=== PATIENT | male | born 1955 | race Caucasian/White ===

== ENCOUNTER → 2022-03-15 | Outpatient (CLI) | payer BC, SELFPAY ==
[2022-03-15 11:40] LABS: PSA,Total - Annual Screen 2.79 ng/mL (0.00-4.00)
== END | disposition home or self-care (01) ==
LOC: LAB 10:29
PROVIDERS: PCP Nurse Practitioner Family; Referring Provider Urology; Visit Provider Urology
DX: Z12.5 Encounter for screening for malignant neoplasm of prostate (principal)
CPT/HCPCS: 36415; 84153; G0103

== ENCOUNTER 2022-04-14 09:01 | Inpatient (IN) | payer BC, SELFPAY ==
--- NOTE | 2022-04-08 12:50 | EKG12_ITS ---
Test Reason : PREOP Blood Pressure : / mmHG Vent. Rate : 076 BPM Atrial Rate : 076 BPM P-R Int : 126 ms QRS Dur : 106 ms QT Int : 374 ms P-R-T Axes : 068 -53 058 degrees QTc Int : 420 ms Normal sinus rhythm Left axis deviation Abnormal ECG Confirmed by JANET WORLEY, BRITNEY ([id number]), avid editor CASSIE RIVAS ([id number]) on 04/13/2022 9:37:13 AM Referred By: Moustapha Vee Confirmed By:KEYUR GONZALES MD
[2022-04-14] VITALS (12 sets, daily range): BP systolic 116–163; BP diastolic 72–96; PULSE 60–114; RESP 16–18; TEMP 36.4–37; O2SAT 94–100; BMI 27.0
[2022-04-14] MEDS: Lactated Ringers 1,000 ML 15 ML IV ×2 (06:30→09:31)
[2022-04-14] MEDS: Cefazolin 2 GM in 0.9% Normal Saline 100 ML IV (08:14)
--- NOTE | 2022-04-14 08:18 | DCINST_ITS ---
Discharge Instructions Diet Discharge Diet: No restrictions Activity Discharge Activity: Return to Normal Activity Return to work on:: 04/19/22February shower in (days): 1 Lifting Restrictions: no heavy lifting. Follow Up Care Please Follow Up With: Moustapha Vee MD When: 2 -3 weeks, if you go home with taylor then we can see you next week to remove taylor Test Results: Test results from this visit will be discussed in further detail at your follow- up appointment, if applicable. Discharge Plan Admission Primary Reason for Your Visit: resect bladder tumor Attending Provider: Moustapha Vee Primary Care Provider: Jamey Magdaleno NP Instructions Patient Instructions: Discharge Instructions for ... Discharge Orders/Prescriptions Prescriptions: No Action NK Other Ambulatory Orders: 12 Lead EKG (Routine) Timeframe: [id number] Location: None Selected Ordered By: Dr. Beltran Saxena Referrals / Follow Up: Moustapha Vee MD [STAFF PHYSICIAN] - Jamey Magdaleno NP, RAILWAY TRACK WORKER-C [Primary Care Provider] - Disposition Disposition (needs filled in before D/C Order can be placed): Home, Self Care
--- NOTE | 2022-04-14 08:30 | BLB_PTH ---
PATIENT: ROBERT ROSENBERG LOC: [facility] U#:[id number] AGE/SX: 66/M ROOM: IA312 RE04/14/[address]: Dr. Moustapha Vee MD : [id number] BED: 1 DIS: 04/15/2022 SPEC #: [id number] RECD: 04/14/22 10:37 STATUS: JOSS BENITESAlexei #: [id number] ALEXY: 04/14/22 08:[address]: Moustapha Vee DEPT: SURGICAL PATHOLOGY RECD BY: Desirae Luis ENTERED: 04/14/22 12:14 SP TYPE: TURB OTHR DR: Jamey Magdaleno, GAS USAGE METER CLERK-C Tissues: Urinary bladder, NOS Procedures: Surgery Specimen Level V HEADER OPERATION: Cysto, transurethral resection bladder PRE-OP DIAGNOSIS: Screening, bladder neoplasm TISSUE SUBMITTED: Bladder tissue MICROSCOPIC DIAGNOSIS Urinary bladder tumor, transurethral resection: Papillary carcinoma. See cancer template below. AM:carla 04/15/2022 COMMENT BLADDER CANCER (TUR) SUMMARY Procedure: Transurethral resection of bladder (TURBT) Tumor site: Not specified Histologic type: Papillary urothelial carcinoma Histologic grade: 3/3 (high grade) Tumor configuration: Papillary and invasive Muscularis propria invasion: Present, frequent Lymphvascular invasion: Not identified Tumor extension: Tumor extends frequently into the detrusor muscle. Additional pathologic findings: Mild chronic inflammation. The above summary is in compliance with [employer] [place] Pathology (CAP) Cancer Protocols Checklist and [place] Joint Committee on Cancer (AJCC), Staging Manual, 8th Ed. Case has been reviewed in consultation with Dr. Valenzuela who concurs with the above diagnosis. LUIS:DOLLY MICROSCOPIC DESCRIPTION Slides are reviewed. GROSS DESCRIPTION Received in fixative is one container labeled with the patient's name and designated bladder tissue. The specimen consists of multiple irregular fragments of woodson soft tissue that in aggregate measure 4 x 3 x 1 cm. The entire specimen is submitted in five cassettes. / SJ:carla 04/14/2022 TC:0 CPT: 23067
--- NOTE | 2022-04-14 09:03 | PCM.OPRPT ---
Report of Operation Date of Procedure: 04/14/22 Pre-Operative Diagnosis: Bladder cancer bladder tumor seen on CAT scan Post-Operative Diagnosis: The same multifocal invasive looking bladder cancer Surgery/Procedure Performed:: Transurethral resection of a large multiple bladder tumors >5cm Description of Surgical Findings:: This is a 66-year-old male had some gross hematuria he had a CAT scan done a CAT scan demonstrated a mass within the bladder very suspicious for bladder cancer so recommended we take him to surgery for transurethral resection of bladder tumors. Patient was taken back to the operating room at the [facility] duction of general anesthesia I went in to the bladder with a 21 Turkish rigid cystourethroscope the penis and testicle had been prepped and draped in usual sterile fashion, the plan cystoscopy with a 30 degree lens immediately he had a very endophytic and invasive looking tumor in the posterior trigone area of the bladder he then had some extensive amount of fluffy exophytic tumors papillary tumors throughout the bladder and he had a large papillary tumor in the dome of the bladder I then started the resection both the left and right ureteral orifice and fortunately were not involved, I resected the tumor in the posterior midline is a very deep tumor got down to the muscle in my view it appeared to be muscle invasive there appeared to be tumor between the muscle fibers very suspicious for muscle invasive bladder cancer despite with the pathologist may read. I then went and extensively try to cauterize many of these other fluffy tumors throughout the bladder and then the tumor in the dome was extremely hard to get to I resected most of it but at 1 point discussed to which bleeding did very difficult to see so I do not think I did a complete resection of this tumor better resected as much as possible. At this point because of the bleeding I put a three-way catheter and cauterized as much as possible and put him on irrigation with keep him overnight to stop the bleeding hopefully home tomorrow with a catheter. Surgeon: Moustapha Vee Type of Anesthesia: General Drains: 22fr [address] way Admit VTE Documentation VTE Present on Admission: No VTE Mechan Device Prophylaxis: SCD's VTE Pharm Prophylaxis ordered?: No
[2022-04-14] MEDS: Cefazolin 1 GM/50 ML BAG IV ×2 (13:53→22:17)
[2022-04-14] MEDS: 0.9% Saline Lock 10 ML Syringe IV ×2 (16:05→19:57)
[2022-04-14] MEDS: Morphine 2 MG/ML Syringe IV ×3 (16:05→22:20)
[2022-04-15] MEDS: Cefazolin 1 GM/50 ML BAG IV (05:55)
[2022-04-15] MEDS: 0.9% Saline Lock 10 ML Syringe IV (06:33)
[2022-04-15] MEDS: Morphine 2 MG/ML Syringe IV (06:33)
[2022-04-15 07:54] VITALS: BP 130/66; PULSE 92; RESP 18; TEMP 37.1; O2SAT 97
--- NOTE | 2022-04-15 09:58 | CASEMGMT ---
JEFF ALVAREZ SAP BOBJ DEVELOPER CM to room to meet with patient for initial transition planning/care coordination assessment. RN KIM introduced self and role at [facility].? Pt voices understanding and consents to assessment at this time.? Pt sitting up in chair in no distress at this time.? @ bedside. Pt is A/O at this time and answers all questions appropriately.?? Care providers, pharmacy, and demographics verified/updated at this time. PCP: KERI Magdaleno Specialists: Dr Vee Preferred Pharmacy: [facility] Insurance: [place] Prescription Benefit:?Yes Living Will/HPOA:? Pt does not currently have LW/HCPOA and declines info at this time.? Pt made aware that he can contact as an out-pt and make appt in the future if he decides he would like to talk with someone about this or would like to utilize [facility] social work for advanced directive completion.?Pt has [employer] card with information and contact number. Pt expresses understanding.? LNOK: Deanne Living Arrangements: Lives w/ in 2-story home w/no steps to enter. Denies difficulty w/stairs, just takes them slowly. Independent. Transportation:?Pt states drives self and states no transportation concerns at this time.? also drives DME: ? Denies using any DME and denies needs.? HHC/SNF: No hx of either. No needs identified. Pt wishes to return home and states has no concerns with going home at time of discharge.?? Pt and voice no concerns/needs at this time.? Advised pt and to ask for CM if any questions/concerns/needs arise.? Voices understanding. PLAN:??Home Oly MARQUEZ RN, CM
[2022-04-15 10:57] VITALS: BP 125/86; PULSE 94; RESP 16; TEMP 36.7; O2SAT 97
== END 2022-04-15 11:02 | disposition home or self-care (01) | DRG 670 ==
LOC: SDC 09:14 → MS3 09:14
PROVIDERS: Admitting Provider Urology; PCP Nurse Practitioner Family; Referring Provider Urology; Visit Provider Urology
PROC: 0T5B8ZZ Destruction of Bladder, Via Natural or Artificial Opening Endoscopic (ICD-10-PCS; CPT 51720; principal; 2022-04-14 08:10)
DX: C67.1 Malignant neoplasm of dome of bladder (principal)
CPT/HCPCS: 88307; 93005; J7120; A4216; J2405; J3490; J9280

== ENCOUNTER → 2022-08-10 | Outpatient (CLI) | payer BC, SELFPAY ==
--- NOTE | 2022-08-10 11:56 | STRESSREP_ITS ---
Stress Test Report Date: 08/10/2022 Procedure: Pharmacologic stress nuclear imaging study Indications: Cardiomyopathy Consent: Per the patient Procedure: The patient underwent pharmacologic (Regadenoson 0.4mg ) evaluation with a peak heart rate of 136 beats per minute (87%predicted maximal heart rate) and a peak blood pressure of 132/84 mmHg. The baseline ECG demonstrated normal sinus rhythm. The peak pharmacologic ECG demonstrated no ischemic changes. There were no cardiac dysrhythmias pretest, during pharmacologic infusion, or recovery. There was no complaint of chest discomfort during pharmacologic infusion or recovery. The patient was injected with 11.8 millicuries of technetium 99m Cardiolite and subsequently rest SPECT Cardiolite nuclear imaging was obtained in the horizontal long, vertical long, and short axis views. The patient underwent pharmacologic (Regadenoson) evaluation. The patient was injected with 33.5 millicuries of technetium 99m Cardiolite and subsequently stress SPECT Cardiolite nuclear imaging was obtained in the horizontal long, vertical long, and short axis views. A gated Cardiolite study at peak stress was obtained. The examination was stopped secondary to completion of protocol. Rest and stress SPECT Cardiolite nuclear imaging status post realignment, normalization, and attenuation correction demonstrate no reversible ischemic changes. There is significant GI uptake and motion artifact. The gated Cardiolite study demonstrates myocardial thickening and inward wall motion. The reported LVEF is 46%. Impression: 1. Pharmacologic (Regadenoson) evaluation 2. Peak pharmacologic ECG with no ischemic change. 3. There were no cardiac dysrhythmias pretest, during pharmacologic infusion, or recovery. 5. Post attenuation correction images failed to reveal any reversible ischemic defects. 6. The gated Cardiolite study reports an LVEF of 46%. This note was generated with [employer] software. It may contain incorrect words, spelling, and punctuation that were not noted in checking the note before signing.
== END | disposition home or self-care (01) ==
PROVIDERS: PCP Nurse Practitioner Family; Visit Provider Internal Medicine Cardiovascular Disease
DX: I42.9 Cardiomyopathy, unspecified (principal)
CPT/HCPCS: 78452; 93017; A9500; A4216; J2785

== ENCOUNTER → 2022-08-17 | Outpatient (CLI) | payer BC, SELFPAY ==
[2022-08-17 11:53] LABS: Anion Gap 5 (5-15); BUN 22 mg/dL (7-18); BUN/Creat Ratio 21.4 RATIO (10-20); Calcium,Total 9.5 mg/dL (8.5-10.1); Chloride 103 mmol/L (98-107); Creatinine, Serum 1.03 mg/dL (0.70-1.30); EST Glomerular Filtration Rate 77 mL/min (>60); Est Glom Filt Rate - Afr Amer 93 mL/min (>60); Glucose 115 mg/dL (74-106); Potassium 4.2 mmol/L (3.5-5.1); Sodium Level 136 mmol/L (136-145); Thyroid Stim Hormone (TSH) 0.88 uIU/mL (0.358-3.74)
== END | disposition home or self-care (01) ==
LOC: LAB 10:20
PROVIDERS: PCP Nurse Practitioner Family; Referring Provider Internal Medicine Cardiovascular Disease; Visit Provider Internal Medicine Cardiovascular Disease
DX: I42.9 Cardiomyopathy, unspecified (principal); T45.1X5A Adverse effect of antineoplastic and immunosuppressive drugs, initial encounter
CPT/HCPCS: 36415; 80048; 84443

== ENCOUNTER 2022-09-27 13:40 | Inpatient (IN) | payer MEDICARE, SELFPAY ==
[2022-09-27] VITALS (9 sets, daily range): BP systolic 90–109; BP diastolic 50–75; PULSE 80–86; RESP 12–19; TEMP 36.2–37.1; O2SAT 92–98; BMI 24.5; BMI 23.4
--- NOTE | 2022-09-27 13:57 | EKG12_ITS ---
Test Reason : SYNCOPE Blood Pressure : / mmHG Vent. Rate : 074 BPM Atrial Rate : 074 BPM P-R Int : 128 ms QRS Dur : 106 ms QT Int : 374 ms P-R-T Axes : 070 -57 064 degrees QTc Int : 415 ms Normal sinus rhythm Left axis deviation Low voltage QRS (Limb Leads) Abnormal ECG Confirmed by JONAS WORLEY, IZABEL ([id number]), graphic editor CASSIE RIVAS ([id number]) on 09/29/2022 10:15:50 AM Referred By: Confirmed By:IZABEL MCDANIEL MD
[2022-09-27] MEDS: 0.9% Normal Saline 1,000 ML 2000 ML IV (13:59)
--- NOTE | 2022-09-27 14:00 | EX.ED.DYSGE1 ---
HPI History of Present Illness Chief Complaint: Weakness Detail of Chief Complaint: Possible seizure. Informant: patient and spouse/S.O. Onset/Context/Timing Onset: Today Context: Gradual Onset Timing: Continuous Current Severity: Mild Maximum Severity: Moderate Narrative Narrative: 67-year-old male history of bladder cancer with a prior bladder resection. Recently hospitalized at [facility]. Has been lightheaded and dizzy since last . states had decreased oral intake. He is also had diarrhea. No fever or chills. No chest pain or abdominal pain. Today she called the squad because he was just so weak. When he sat him up to put him in the ambulance he either had myoclonic jerking or possibly a seizure. He is hypotensive on arrival. Prior similar symptoms: No Recent Illness/Hospitalization: Yes [facility] Medical History Chemotherapy induced cardiomyopathy Malignant neoplasm of overlapping sites of bladder Wears dentures Home Medications acetaminophen 500 mg capsule 1,000 mg PO Q8H PRN pain 07/30/22 [History Last Taken Unknown] lisinopril 2.5 mg tablet 2.5 mg PO DAILY #30 tabs 08/05/22 [Rx Last Taken Unknown] carvedilol 25 mg tablet 25 mg PO BID HEART 09/27/22 [History Last Taken 09/27/22] cefdinir 300 mg capsule 300 mg PO DAILY 09/27/22 [History Last Taken Unknown] docusate sodium 100 mg capsule 100 mg PO DAILY 09/27/22 [History Last Taken Unknown] dronabinol 5 mg capsule 5 mg PO DAILY 09/27/22 [History Last Taken Unknown] fluconazole 200 mg tablet 200 mg PO DAILY 09/27/22 [History Last Taken Unknown] loperamide 2 mg capsule 2 mg PO PRN PRN Diarrhea 09/27/22 [History Last Taken Unknown] magnesium chloride 71.5 mg (magnesium chloride) tablet,delayed release 71.5 mg PO BID SUPPLEMENT 09/27/22 [History Last Taken 09/27/22] sertraline 50 mg tablet 50 mg PO DAILY ANXIETY 09/27/22 [History Last Taken Unknown] sodium chloride 0.9 % irrigation solution 60 ml irrigation TID IRRIGATION 09/27/22 [History Last Taken 09/27/22] Allergy/AdvReac Type Severity Reaction Status Date / Time No Known Allergies Allergy Verified 08/17/22 09:38 Family History Mother Heart disease Brother Heart disease Surgical History History of bladder surgery (~04/14/22) Social History Smoking Status: Never smoker alcohol intake: never substance use type: does not use caffeine: Yes Type: coffee Number of servings: 2 ROS ROS ED ROS Narrative Lightheaded. Decreased oral intake. Review of Systems ROS Unobtainable: Denies due to encephalopathy Constitutional Constitutional ED: Denies chills or fever(s) Eyes Eyes: Denies blurry vision ENT ENT ED: Denies ear pain or rhinorrhea Cardiovascular Cardiovascular: Denies chest pain Respiratory/Chest Respiratory/Chest: Denies cough or dyspnea Gastrointestinal Gastrointestinal: Reports diarrhea; Denies abdominal pain, constipation, melena, nausea or vomiting Genitourinary Genitourinary ED: Denies dysuria or hematuria Musculoskeletal Musculoskeletal: Denies arthralgias Integumentary Denies abscess Psychiatric Psychiatric: Denies anxiety Endocrine Endocrinology: Denies cold intolerance Hematologic/Lymphatic Hematologic/Lymphatic: Reports none Allergic/Immunologic Allergic/Immunologic ED: Denies mouth swelling or tongue swelling EXAM Physical Exam Narrative Exam Narrative: 67-year-old male he is hypotensive 93/75. He is awake and alert. at bedside. H EENT exam atraumatic. Pupils round reactive light. No facial droop. Normal speech. Dry mucous membranes. Neck nontender no JVD. Lungs clear to auscultation bilaterally. Heart regular rhythm rate about 80 no murmur. Chest wall nontender. Abdomen soft nontender. Prior well-healed laparoscopic incisions. He is got a urostomy hole without a suprapubic catheter. He does have a Segovia catheter in place. Skin no peritoneal signs. Abdomen is nontender. He is nondistended. Moving all 4 extremities. Nontender no edema. Neurologically is awake and alert with no focal motor deficits. Const Vital Signs: 09/27/22 13:41 09/27/22 13:44 09/27/22 14:24 Temperature 97.1 F L Temperature Source Temporal Pulse Rate 82 Respiratory Rate 19 H Respiratory Effort Normal Blood Pressure 93/75 Blood Pressure Mean 81 Pulse Ox 97 Oxygen Delivery Method Room Air Room Air 09/27/22 14:41 09/27/22 15:00 09/27/22 16:00 Temperature Temperature Source Pulse Rate 81 80 80 Respiratory Rate 13 14 12 Respiratory Effort Blood Pressure 109/64 100/70 107/64 Blood Pressure Mean 79 80 78 Pulse Ox 92 98 97 Oxygen Delivery Method Room Air Room Air Room Air Positive well nourished and well developed; Negative for obese, cachectic, contractures or unkempt General Appearance ED: well developed and NAD; Negative for unkempt, cachectic, contractures, cyanotic, diaphoretic or pallor Nutritional Appearance: Negative for cachectic or obese HEENT Reports dry mucous membranes; Denies moist mucous membranes Negative for trauma or tenderness Mouth ED: Yes dry mucous membranes Mouth: dry mucous membranes Eyes PERRL and EOMs intact bilaterally General Eye ED: Negative for pale conjunctiva or scleral icterus Neck no lymphadenopathy, supple and no JVD General: Negative for tenderness Lymph Lymphatic: Negative for other Chest Wall inspection of chest normal and palpation of chest normal Resp normal respiratory effort and clear to auscultation bilaterally Effort and Inspection: Negative for retractions Auscultation: Negative for rales or rhonchi Cardio regular rate, regular rhythm, S1 normal heart sound, S2 normal heart sound and no murmurs Palpation: Negative for palpable S3 Rate: Negative for bradycardia Rhythm: Negative for abnormal rhythm GI normal to inspection, nondistended, normoactive bowel sounds, non-tender, non-distended and no masses Inspection: Negative for abdominal distention Auscultation: normoactive bowel sounds Palpation: soft; Negative for tender or guarding Back/Spine no CVA tenderness General Back: Negative for CVA tenderness Cervical Spine: Negative for cervical spine tenderness Thoracic Spine / Upper Back: Negative for thoracic spinal tenderness Lumbar Spine / Lower Back: Negative for lumbar spinal tenderness Extremity normal to inspection General Extremety ED: Negative for edema or tenderness General Extremity: Negative for edema Neuro oriented x3 and CN's II-XII intact bilaterally Sensorium / Orientation: alert; Negative for orientation impaired, lethargic or stuporous Motor Exam: strength 5/5 throughout Psych mental status grossly normal Appearance: Negative for unkempt Attitude: No agitated Mood & Affect: Negative for depressed, anxious or tearful Skin no rashes or lesions noted and no wounds General Skin Exam: Negative for jaundice or pallor Lesions: No lesion noted Rashes: No rashes noted Trauma: Negative for abrasion Wounds: Negative for wounds noted MDM MDM MDM Narrative Medical decision making narrative: 67-year-old male hypotensive may or may not of seizures versus myoclonic jerking from hypotension. Will undergo a sepsis work-up. He is receiving 2 L of normal saline. Once his hypotension improves will obtain a CAT scan of the abdomen pelvis per hospitalist request due to a prior history of a intra-abdominal pelvic abscess. Multiple repeat exams patient's blood pressure is improving is over 100 now systolic after 2 L normal saline. Will be started on IV Rocephin for suspected UTI. Urine culture sent. Blood cultures x2 sent. CAT scan is pending. I spoken to the hospitalist he will be admitted to the PCU. The patient was recently at [facility] I attempted to call them for a transfer. They are not excepting transfers at this time due to staffing and bed availability. Lab Data Attestation: I reviewed the patient's lab results. Lab results narrative: CBC shows a normal white count 6.4. H&H 10.8 and 32. Platelets of 79,000 PT/INR 15 and 1.2. PTT of 22.4. Electrolytes show sodium 130 gap of 8 BUN of 83 creatinine 1.49 consistent with dehydration. Liver enzymes normal. Lactic acid is elevated 2.3. Urine appears infected with 20-50 red cells, 5200 white cells and 4+ bacteria. A culture will be sent. We started on IV Rocephin. I will speak to the hospitalist about admission. Labs: Laboratory Results - last 24 hr 09/27/22 09/27/22 09/27/22 13:45 13:45 13:45 WBC 6.4 RBC 3.33 L Hgb 10.8 L Hct 32.2 L MCV 96.7 H MCH 32.4 H MCHC 33.5 RDW Std Deviation 59.7 H RDW Coeff of Nirmal 16.7 H Plt Count 79 L MPV 10.3 Immature Gran % (Auto) 1.900 H Neut % (Auto) 57.3 Lymph % (Auto) 29.4 [place] % (Auto) 9.6 Eos % (Auto) 1.6 Baso % (Auto) 0.2 Absolute Neuts (auto) 3.7 Absolute Lymphs (auto) 1.87 Nucleated RBC % 0 Differential Comment COMMENT Platelet Estimate MOD DEC PT 15.1 H INR 1.2 APTT 22.4 L Sodium 130 L Potassium 5.0 Chloride 102 Carbon Dioxide 20.0 L Anion Gap 8 BUN 83 H Creatinine 1.49 H Estim Creat Clear Calc 49.43 Est GFR (MDRD) Af Amer 61 Est GFR (MDRD) Non-Af 50 L BUN/Creatinine Ratio 55.7 H Glucose 124 H Lactic Acid Calcium 9.5 Total Bilirubin 0.20 AST 8 L ALT 27 Alkaline Phosphatase 90 Troponin I High Sens 15 Total Protein 6.8 Albumin 2.8 L Globulin 4.0 Albumin/Globulin Ratio 0.7 L Urine Color Urine Clarity Urine pH Ur Specific [place] Urine Protein Urine Glucose (UA) Urine Ketones Urine Occult Blood Urine Nitrite Urine Bilirubin Urine Urobilinogen Ur Leukocyte Esterase Urine RBC Urine WBC Ur Squamous Epith Cells Urine Bacteria Urine Mucus 09/27/22 09/27/22 13:45 14:42 WBC RBC Hgb Hct MCV MCH MCHC RDW Std Deviation RDW Coeff of Nirmal Plt Count MPV Immature Gran % (Auto) Neut % (Auto) Lymph % (Auto) [place] % (Auto) Eos % (Auto) Baso % (Auto) Absolute Neuts (auto) Absolute Lymphs (auto) Nucleated RBC % Differential Comment Platelet Estimate PT INR APTT Sodium Potassium Chloride Carbon Dioxide Anion Gap BUN Creatinine Estim Creat Clear Calc Est GFR (MDRD) Af Amer Est GFR (MDRD) Non-Af BUN/Creatinine Ratio Glucose Lactic Acid 2.3 H* Calcium Total Bilirubin AST ALT Alkaline Phosphatase Troponin I High Sens Total Protein Albumin Globulin Albumin/Globulin Ratio Urine Color Straw Urine Clarity Cloudy Urine pH 6.5 Ur Specific [place] 1.015 Urine Protein 100 H Urine Glucose (UA) Normal Urine Ketones Negative Urine Occult Blood 250 H Urine Nitrite Negative Urine Bilirubin Negative Urine Urobilinogen Normal Ur Leukocyte Esterase 500 H Urine RBC 25-50 SEEN Urine WBC 50-100 SEEN Ur Squamous Epith Cells 0 SEEN Urine Bacteria 4+ Urine Mucus 0 SEEN Radiography Chest X-Ray - ED: 1 View, Read by ED Physician, Read by Radiologist, Heart, Lungs, Mediastinum, Bony Structures, No Acute Disease and Chronic Changes Diagnostic Testing: Clinical Impression(s) from Imaging Studies Chest X-Ray 09/27/22 14:10 IMPRESSION: Hyperinflation. The lungs are clear. Electronically Signed: Jimenez Galvez MD at 14:23 EST , Chest x-ray shows no acute process. No infiltrate. Normal cardiac silhouette. Rhythm Strip Rhythm Strip: Sinus Rhythm Rate: 74 Ectopy: None EKG Initial EKG: Attestation: I personally reviewed and interpreted this EKG as follows: Interpretation: Sinus Rhythm and No Acute Injury Pattern Comments: Normal sinus rhythm rate 84 no acute signs of GA, ischemia or dysrhythmia. Discharge Plan Dx/Rx/DC Orders Clinical Impression: Acute UTI, Acute hypotension, Acute dehydration, History of bladder cancer Disposition Disposition: Acute Care Hospital [facility]
--- NOTE | 2022-09-27 14:10 | RAD_ITS ---
STUDY: X-RAY CHEST REASON FOR EXAM: Male, 67 years old. Hypotension TECHNIQUE: Single AP portable view of the chest. COMPARISON: None. FINDINGS: A left-sided portacatheter is seen with the tip in the right atrium. EKG electrodes are seen. Hyperinflation. The lungs are clear. There is no demonstrated pleural abnormality. Normal size heart. Normal mediastinum and dar. Normal visualized pulmonary arteries. Normal visualized aortic arch and descending thoracic aorta. There are diffuse degenerative changes of the visualized thoracic spine. Normal visualized ribs, clavicles, and shoulders. There is no demonstrated abnormality of the visualized soft tissue structures of the upper abdomen. RAD/Chest 1 View (Portable) IMPRESSION: Hyperinflation. The lungs are clear. Electronically Signed: Jimenez Galvez MD at 14:23 EST ,
[2022-09-27 14:24] LABS: Lactic Acid 2.3 mmol/L (0.4-1.9)
[2022-09-27 14:27] LABS: Absolute Lymphocyte Count 1.87 X10^3/uL (0.83-4.51); Absolute Neutrophil Count 3.7 X10^3/uL (2.0-7.7); Basophil# 0.01 X10^3/uL; Basophil% 0.2 % (0-1); Eosinophils% 1.6 % (0-5); Hematocrit 32.2 % (40-54); Hemoglobin 10.8 g/dL (13.0-16.5); Lymphocyte # 1.87 X10^3/ul (0.83-4.51); Lymphocyte % 29.4 % (19-41); Mean Corp Hgb Conc 33.5 g/dL (32-36); Mean Corpuscular Hgb 32.4 pg (27.0-32.0); Mean Corpuscular Volume 96.7 fL (80-94); Mean Platelet Vol. 10.3 fl (6.2-12.0); Monocyte# 0.61 X10^3/uL; Monocyte% 9.6 % (0-10); NRBC Flagged by Analyzer 0 % (0-5); Neutrophil # 3.66 X10^3/uL (2.7-7.7); Neutrophil % 57.3 % (47-70); POSITIVE COUNT YES; Platelet Count 79 K/mm3 (150-450); RBC Distribution Width CV 16.7 % (11.6-14.6); RBC Distribution Width SD 59.7 fl (35.1-43.9); Red Blood Count 3.33 M/mm3 (4.6-6.2); White Blood Count 6.4 K/mm3 (4.4-11.0)
[2022-09-27 14:32] LABS: ALB/GLOB Ratio 0.7 RATIO (0.9-2.4); AST(SGOT) 8 U/L (15-37); Alanine Aminotransfer ALT/SGPT 27 U/L (16-61); Albumin, Serum 2.8 g/dL (3.2-5.0); Alkaline Phosphatase 90 U/L (45-117); Anion Gap 8 (5-15); BUN 83 mg/dL (7-18); BUN/Creat Ratio 55.7 RATIO (10-20); Calcium,Total 9.5 mg/dL (8.5-10.1); Chloride 102 mmol/L (98-107); Creatinine, Serum 1.49 mg/dL (0.70-1.30); EST Glomerular Filtration Rate 50 mL/min (>60); Est Glom Filt Rate - Afr Amer 61 mL/min (>60); Estimated Creatinine Clearance 49.43 ml/min; Glucose 124 mg/dL (74-106); International Normalized Ratio 1.2; Partial Thromboplast Time 22.4 Seconds (24.1-36.2); Protein, Total 6.8 g/dL (6.4-8.2); Prothrombin Time (Protime)PT. 15.1 SECONDS (11.7-14.9); Sodium Level 130 mmol/L (136-145); Troponin-I HS 15 pg/mL (3.0-78.0)
[2022-09-27 14:41] LABS: Differential Indicated SCAN CRITERIA MET
[2022-09-27 14:43] LABS: Mucous, Urine 0 SEEN /hpf (<or=2+); Squamous Epithelial Cells - UA 0 SEEN /hpf (0-5)
[2022-09-27 14:53] LABS: Color, Urine Straw (Yellow); Glucose, Dipstick Normal (Normal); Ketone-Dipstick Negative (Negative); Leukocyte Esterase-Dipstick 500 /ul (Negative); Nitrite-Dipstick Negative (Negative); Occult Blood-Urine 250 /ul (Negative); Protein-Dipstick 100 mg/dl (Negative); Specific Gravity, Urine 1.015 (1.002-1.030); Urine Bilirubin Dipstick Negative (Negative); Urine Clarity Cloudy (Clear); Urine Urobilinogen Normal (Normal); Urine pH 6.5 (5.0 - 8.0)
[2022-09-27 14:56] LABS: Platelet Estimate MOD DEC (ADEQ)
[2022-09-27 15:00] LABS: Red Blood Cells-Urine 25-50 SEEN /hpf (0-5)
[2022-09-27 15:01] LABS: Bacteria 4+ /hpf (None Seen); White Blood Cells 50-100 SEEN /hpf (0-5)
[2022-09-27] MEDS: 0.9% Normal Saline 1,000 ML 999 ML IV (16:00)
--- NOTE | 2022-09-27 16:54 | CT_ITS ---
STUDY: CT Abdomen And Pelvis W/ Contrast Injection 09/27/2022 5:31 PM REASON FOR EXAM: Male, 67 years old. BLADDER CA W/RECENT RESECTION, WEAKNESS AND DECREASED ORAL INTAKE X 1 WEEK PAIN hx of abd abscess TECHNIQUE: Transaxial images were obtained without oral contrast, and with IV 100mL Isovue-300 intravenous contrast. Individualized dose optimization techniques were used for this CT. COMPARISON: None. FINDINGS: The visualized lung bases are unremarkable. The visualized portions of the heart are within normal limits. Unremarkable liver. Unremarkable gallbladder and extrahepatic biliary system. Unremarkable spleen. Unremarkable pancreas. Unremarkable bilateral adrenal glands. Air in the collecting system is likely iatrogenic. Double-J bilateral ureteral stents in place. Bilateral hydronephroureter. Unremarkable visualized stomach. Unremarkable small intestine. Unremarkable colon. There is non-visualization of the appendix. There are calcifications of the abdominal aorta. This is consistent for atherosclerotic disease. There is no abdominal aortic aneurysm. Unremarkable inferior vena cava. Subcentimeter mesenteric lymph nodes. There is a pigtail drain entering from the left lower quadrant. Presacral inflammatory changes. There is a Segovia balloon catheter in the Rafa urinary bladder. Air in the urinary bladder. This is likely iatrogenic. Unremarkable abdominal wall. There are diffuse degenerative changes of the visualized lumbar spine. CT/Abdomen/Pelvis W IV Cont ONLY IMPRESSION: (NOT LISTED IN ORDER OF SIGNIFICANCE) Double-J bilateral ureteral stents in place. Bilateral hydronephroureter. Other findings as above. Electronically Signed: Parviz Stevenson MD at 17:38 EST ,
[2022-09-27] MEDS: Ceftriaxone 1 GM/50 ML BAG IV (17:46)
--- NOTE | 2022-09-27 17:59 | HP.PCM.HOS_ITS ---
[facility] Date of Service: 09/27/22 Chief Complaint: Syncope [facility] Narrative ROBERT ROSENBERG, is a 67 M who presents recently discharged from [facility] and was feeling lightheaded and dizzy since this past . Not eating and drinking much and also having diarrhea. Patient was very weak and then passed out and was noted to have some jerking motions. Patient was noted to be hypotensive. Patient did receive IV fluids and blood pressure has subsequent improved as well as mental status. Patient during his hospitalization most recently at [facility] this month was for intra- abdominal abscess. Patient had a drain placed and was put on oral antibiotics. Repeat CAT scan here showed no evidence of an abscess. Patient does have a drain still in place. Patient did have a suprapubic catheter 1 point but that has since been removed. Patient does have some oozing that can be occasionally expressed from that area but that has slowly improved over time. In the emergency room here, patient did receive IV fluids. Patient was noted to have Urinary tract infection on urinalysis and did receive ceftriaxone. Patient's catheter was changed in the emergency room. [facility] Medical History Chemotherapy induced cardiomyopathy Malignant neoplasm of overlapping sites of bladder Wears dentures Home Medications acetaminophen 500 mg capsule 1,000 mg PO Q8H PRN pain 07/30/22 [History Last Taken 09/26/22] lisinopril 2.5 mg tablet 2.5 mg PO DAILY #30 tabs 08/05/22 [Rx Last Taken 09/27/22] carvedilol 25 mg tablet 25 mg PO BID HEART 09/27/22 [History Last Taken 09/27/22 ] cefdinir 300 mg capsule 300 mg PO DAILY 09/27/22 [History Last Taken 09/27/22] docusate sodium 100 mg capsule 100 mg PO DAILY 09/27/22 [History Last Taken Unknown] dronabinol 5 mg capsule 5 mg PO DAILY 09/27/22 [History Last Taken 09/26/22] fluconazole 200 mg tablet 200 mg PO DAILY 09/27/22 [History Last Taken 09/27/22] loperamide 2 mg capsule 2 mg PO PRN PRN Diarrhea 09/27/22 [History Last Taken Unknown] magnesium chloride 71.5 mg (magnesium chloride) tablet,delayed release 71.5 mg PO BID SUPPLEMENT 09/27/22 [History Last Taken 09/27/22] sertraline 50 mg tablet 50 mg PO DAILY ANXIETY 09/27/22 [History Last Taken 09/27/22] sodium chloride 0.9 % irrigation solution 60 ml irrigation TID IRRIGATION 09/27/22 [History Last Taken 09/27/22] Allergy/AdvReac Type Severity Reaction Status Date / Time No Known Allergies Allergy Verified 08/17/22 09:38 Family History Mother Heart disease Brother Heart disease Surgical History History of bladder surgery (~04/14/22) Social History Smoking Status: Never smoker alcohol intake: never substance use type: does not use caffeine: Yes Type: coffee Number of servings: 2 ROS ROS Narrative No fever chills. All review of systems were negative except as mentioned above in the history of present illness and the other review of systems. Vital Signs Vital Signs Vital Signs: 09/27/22 13:41 09/27/22 13:44 09/27/22 14:24 Temperature 36.2 C L Temperature Source Temporal Pulse Rate 82 Respiratory Rate 19 H Respiratory Effort Normal Blood Pressure 93/75 Blood Pressure Mean 81 Pulse Ox 97 Oxygen Delivery Method Room Air Room Air 09/27/22 14:41 09/27/22 15:00 09/27/22 16:00 Temperature Temperature Source Pulse Rate 81 80 80 Respiratory Rate 13 14 12 Respiratory Effort Blood Pressure 109/64 100/70 107/64 Blood Pressure Mean 79 80 78 Pulse Ox 92 98 97 Oxygen Delivery Method Room Air Room Air Room Air 09/27/22 17:02 Temperature 37.1 C Temperature Source Temporal Pulse Rate 86 Respiratory Rate 14 Respiratory Effort Blood Pressure 100/72 Blood Pressure Mean 81 Pulse Ox 98 Oxygen Delivery Method Room Air Weight Weight: 75.4 kg Body Mass Index (BMI) 24.5 Physical Exam Const alert and no apparent distress HEENT normocephalic and head/scalp atraumatic HEENT Narrative: Mucous membranes are moist Resp normal respiratory effort, no retractions, no use of accessory muscles and clear to auscultation bilaterally Cardio regular rate, regular rhythm, S1 normal heart sound and S2 normal heart sound GI normal to inspection, nondistended, normoactive bowel sounds, soft to palpation, non-tender and non-distended Extremity normal to inspection Psych affect normal Results Lab / Micro Data Attestation: I reviewed the patient's lab results. Result Diagrams: 09/27/22 13:45 09/27/22 13:45 Labs: Laboratory Results - last 24 hr 09/27/22 13:45: WBC 6.4, RBC 3.33 L, Hgb 10.8 L, Hct 32.2 L, MCV 96.7 H, MCH 32.4 H, MCHC 33.5, RDW Std Deviation 59.7 H, RDW Coeff of Nirmal 16.7 H, Plt Count 79 L, MPV 10.3, Immature Gran % (Auto) 1.900 H, Neut % (Auto) 57.3, Lymph % (Auto) 29.4, [place] % (Auto) 9.6, Eos % (Auto) 1.6, Baso % (Auto) 0.2, Absolute Neuts (auto) 3.7, Absolute Lymphs (auto) 1.87, Nucleated RBC % 0, Differential Comment COMMENT, Platelet Estimate MOD DEC 09/27/22 13:45: PT 15.1 H, INR 1.2, APTT 22.4 L 09/27/22 13:45: Sodium 130 L, Potassium 5.0, Chloride 102, Carbon Dioxide 20.0 L , Anion Gap 8, BUN 83 H, Creatinine 1.49 H, Estim Creat Clear Calc 49.43, Est GFR (MDRD) Af Amer 61, Est GFR (MDRD) Non-Af 50 L, BUN/Creatinine Ratio 55.7 H, Glucose 124 H, Calcium 9.5, Total Bilirubin 0.20, AST 8 L, ALT 27, Alkaline Phosphatase 90, Troponin I High Sens 15, Total Protein 6.8, Albumin 2.8 L, Globulin 4.0, Albumin/Globulin Ratio 0.7 L 09/27/22 13:45: Lactic Acid 2.3 H* 09/27/22 14:42: Urine Color Straw, Urine Clarity Cloudy, Urine pH 6.5, Ur Specific Theresa 1.015, Urine Protein 100 H, Urine Glucose (UA) Normal, Urine Ketones Negative, Urine Occult Blood 250 H, Urine Nitrite Negative, Urine Bilirubin Negative, Urine Urobilinogen Normal, Ur Leukocyte Esterase 500 H, Urine RBC 25-50 SEEN, Urine WBC 50-100 SEEN, Ur Squamous Epith Cells 0 SEEN, Urine Bacteria 4+, Urine Mucus 0 SEEN Rhythm Strip Rhythm Strip: Sinus Rhythm Rate: 74 Ectopy: None Radiology Impression Chest X-Ray 09/27/22 14:10 IMPRESSION: Hyperinflation. The lungs are clear. Electronically Signed: Jimenez Galvez MD at 14:23 EST , Abdomen/Pelvis CT 09/27/22 16:54 IMPRESSION: (NOT LISTED IN ORDER OF SIGNIFICANCE) Double-J bilateral ureteral stents in place. Bilateral hydronephroureter. Other findings as above. Electronically Signed: Parviz Stevenson MD at 17:38 EST , Assessment & Plan Assessment/Plan (1) Acute UTI: PLAN: Catheter associated Catheter was changed over in the emergency room patient received ceftriaxone in the emergency room. Will continue with ceftriaxone Follow-up urine cultures and make adjustments accordingly (2) Acute hypotension: PLAN: Resolved Likely prerenal Continue with IV fluids (3) KAYY (acute kidney injury): PLAN: Creatinine 1.3, but baseline is 0.7. Likely prerenal Continue IV fluids (4) Intra-abdominal abscess: PLAN: Had percutaneous drain placed at [facility]. Drain is still in place. Repeat CAT scan here showed no intra-abdominal abscess. Follow-up with [facility] for ventral drain removal PLAN: Plan Chronic conditions * Bladder cancer: Status bladder resection and neobladder. Continue with Segovia catheter. Follow-up with urology as outpatient * Cardiomyopathy: Continue with carvedilol but with instructions on holding if blood pressure is less than 110 systolic and heart rate less than 6060. Hold lisinopril for now * Depression: Continue with sertraline VTE prophylaxis: Continue with ceftriaxone Charges/Coding Visit Charges Inpatient E&M: 73133 Init Hosp L3
[2022-09-27 18:06] LABS: Reflex Lactate? Y
[2022-09-27 18:54] LABS: Lactic Acid 1.7 mmol/L (0.4-1.9)
--- NOTE | 2022-09-27 19:00 | NURSING ---
emergency documentation in effect
--- NOTE | 2022-09-27 19:00 | NURSING ---
Emergency Documentation in effect
--- NOTE | 2022-09-27 19:00 | PCA ---
EMERGENCY DOCUMENTATION
[2022-09-27] MEDS: oxyCODONE 5 MG Tablet PO (19:55)
[2022-09-27] MEDS: Acetaminophen 500 MG Tablet 1000 MG PO (19:56)
[2022-09-27] MEDS: 0.9% Saline Lock 10 ML Syringe IV (20:49)
[2022-09-27] MEDS: 0.9% Normal Saline 1,000 ML 150 ML IV (20:49)
[2022-09-28] VITALS (14 sets, daily range): BP systolic 93–112; BP diastolic 64–74; PULSE 72–117; RESP 16; TEMP 36.4–37.3; O2SAT 95–99
[2022-09-28 04:55] LABS: Absolute Lymphocyte Count 1.17 X10^3/uL (0.83-4.51); Absolute Neutrophil Count 2.6 X10^3/uL (2.0-7.7); Basophil# 0.01 X10^3/uL; Basophil% 0.2 % (0-1); Eosinophil# 0.15 X10^3/uL; Eosinophils% 3.4 % (0-5); Hematocrit 27.9 % (40-54); Hemoglobin 8.8 g/dL (13.0-16.5); Lymphocyte # 1.17 X10^3/ul (0.83-4.51); Lymphocyte % 26.2 % (19-41); Mean Corp Hgb Conc 31.5 g/dL (32-36); Mean Corpuscular Volume 98.2 fL (80-94); Mean Platelet Vol. 9.9 fl (6.2-12.0); Monocyte# 0.45 X10^3/uL; Monocyte% 10.1 % (0-10); NRBC Flagged by Analyzer 0.9 % (0-5); Neutrophil # 2.62 X10^3/uL (2.7-7.7); Neutrophil % 58.5 % (47-70); POSITIVE COUNT YES; Platelet Count 63 K/mm3 (150-450); RBC Distribution Width CV 16.8 % (11.6-14.6); RBC Distribution Width SD 59.8 fl (35.1-43.9); Red Blood Count 2.84 M/mm3 (4.6-6.2); White Blood Count 4.5 K/mm3 (4.4-11.0)
[2022-09-28 05:17] LABS: ALB/GLOB Ratio 0.7 RATIO (0.9-2.4); AST(SGOT) 13 U/L (15-37); Alanine Aminotransfer ALT/SGPT 26 U/L (16-61); Albumin, Serum 2.3 g/dL (3.2-5.0); Alkaline Phosphatase 72 U/L (45-117); Anion Gap 6 (5-15); BUN 58 mg/dL (7-18); BUN/Creat Ratio 56.9 RATIO (10-20); Calcium,Total 8.5 mg/dL (8.5-10.1); Chloride 112 mmol/L (98-107); Creatinine, Serum 1.02 mg/dL (0.70-1.30); EST Glomerular Filtration Rate 78 mL/min (>60); Est Glom Filt Rate - Afr Amer 94 mL/min (>60); Globulin 3.1 g/dL (2.2-4.2); Glucose 98 mg/dL (74-106); Potassium 4.1 mmol/L (3.5-5.1); Protein, Total 5.4 g/dL (6.4-8.2); Sodium Level 135 mmol/L (136-145)
[2022-09-28] MEDS: 0.9% Saline Lock 10 ML Syringe IV ×2 (09:33→21:58)
[2022-09-28] MEDS: Fluconazole 100 MG Tablet 200 MG PO (10:09)
[2022-09-28] MEDS: Enoxaparin 40 MG/0.4 ML Syringe SC (10:10)
[2022-09-28] MEDS: Magnesium Chloride 64 MG Delay Rel.Tablet PO ×2 (10:10→21:58)
[2022-09-28] MEDS: Sertraline 50 MG Tablet PO (10:11)
[2022-09-28] MEDS: Dronabinol 2.5 MG Capsule 5 MG PO (10:42)
[2022-09-28] MEDS: Sodium Chloride Irrig Solution 500 ML 60 ML IRRIGATION ×2 (15:30→21:57)
--- NOTE | 2022-09-28 16:18 | CASEMGMT ---
JEFF ALVAREZ Assessment: Face to Face with pt for initial transition planning/care coordination assessment. JEFF ALVAREZ introduced self and role at [facility], pt voices understanding and consents to assessment. Pt in bed with dtrs and grandson at bedside. Appears to be in no distress. Pt is A/O x4 and answers all questions appropriately at this time. Care providers, pharmacy, and demographics verified/updated. Admitting Dx: Syncope, KAYY, UTI. PCP: [facility]. Specialists: Pt stated he does see a specialist for Urology but can't recall the name. Preferred Pharmacy: [facility]. Insurance: Medicare A. Prescription Benefit: Yes. LW/HPOA: Pt reports having a LW/HPOA. Pt's , Deanne, is HPOA. Pt is aware a copy can be made to be kept on file at [facility]. LNOK: Deanne Carvajal- . Living Arrangements: Pt lives with in a two story home with one step to enter. Pt stays downstairs so does not navigate the steps. Pt was I in ADLs prior to being admitted. Transportation: Pt's transports. DME/HHC/SNF: Pt has the following: cane, walker, shower chair. Pt has HHC in the home with SN and PT. Pt can't recall who the provider is. Pt and family voiced being dissatisfied with the HHC services and would like to switch to another HHC agency. Pt denied any SNF stays in the past. Pt states no concerns with going home at time of dc with continuation of HHC. Pt states no further concerns/needs with the exception of wanting a new HHC agency. CM to follow. Advised pt to ask CM if any further question/concerns/needs arise, voices understanding. Pt Goal: Home with a new HHC provider. Plan:?TBD.
--- NOTE | 2022-09-28 16:44 | PN.HOSP_ITS ---
Subjective Subjective Patient states he does feel better today. Family states he is looking some better but not anywhere close to baseline. I did explain to him that we will go ahead and change his Segovia since this has been a chronic indwelling Segovia and has not been exchanged for an extended period of time. We reviewed the results of the CAT scan with no fluid collections identified and they were pleased with this. I explained the process during this hospital course of ongoing antibiotics until identification of bacteria is made and the likelihood of him going home on either oral or IV antibiotics depending on cultures and se nsitivities. Patient family voiced understanding. Objective Data Objective Data Vital Signs: Vital Signs Temp Pulse Resp BP Pulse Ox O2 Del Method 98.6 F 72 16 100/68 99 Room Air 09/28/22 09:28 09/28/22 09:28 09/28/22 09:28 09/28/22 09:28 09/28/22 09:28 09/28/22 10:00 Oxygen Delivery Method Room Air Weight: 72.1 kg Body Mass Index (BMI) 23.4 Intake & Output: Intake and Output for Last 24 Hours 09/26/22 09/27/22 09/28/22 23:59 23:59 23:59 Intake Total 2049 / 0 1050 / 1050 Output Total 800 / 800 Balance 2050 / 1550 250 / 250 Medical Nutrition Assessment Dietitian: Malnutrition Criteria Met Start: 09/28/22 13:26 Freq: Status: Active Protocol: Document 09/28/22 13:26 (Rec: 09/28/22 13:26 [id number]) Nutrition Malnutrition Evidence of Malnutrition Exists Yes Malnutrition (severe): Chronic Evidenced By Suboptimal Energy Intake ( Severe),Weight Loss (Severe) Clinical Problem Chronic Disease or Condition Related Malnutrition Etiology severe, chronic malnutrition related to inadequate oral intake Signs/Symptoms as evidenced by unintentional wt loss of 21#/12% wt loss x 5 months, estimated PO intake meeting <75 % of estimated energy needs >3 weeks Status Active Problem Recommendation Dietitian Recommendations/Changes regular diet, will fortify foods when able; ensure plus high protein 120mL 4x/day w/ medpass, magic cup w/ dinner for additional calories/ protein if consumed. Lab / Micro Data Result Diagrams: 09/28/22 04:17 09/28/22 04:17 Labs: Laboratory Results - last 24 hr 09/27/22 18:23: Lactic Acid 1.7 09/28/22 04:17: WBC 4.5, RBC 2.84 L, Hgb 8.8 L, Hct 27.9 L, MCV 98.2 H, MCH 31.0, MCHC 31.5 L D, RDW Std Deviation 59.8 H, RDW Coeff of Nirmal 16.8 H, Plt Count 63 L, MPV 9.9, Immature Gran % (Auto) 1.600 H, Neut % (Auto) 58.5, Lymph % (Auto) 26.2, [place] % (Auto) 10.1 H, Eos % (Auto) 3.4, Baso % (Auto) 0.2, Absolute Neuts (auto) 2.6, Absolute Lymphs (auto) 1.17, Nucleated RBC % 0.9 09/28/22 04:17: Sodium 135 L, Potassium 4.1, Chloride 112 H, Carbon Dioxide 17.0 L, Anion Gap 6, BUN 58 H, Creatinine 1.02, Estim Creat Clear Calc 72.20, Est GFR (MDRD) Af Amer 94, Est GFR (MDRD) Non-Af 78, BUN/Creatinine Ratio 56.9 H, Glucose 98, Calcium 8.5, Total Bilirubin 0.20, AST 13 L, ALT 26, Alkaline Phosphatase 72, Total Protein 5.4 L, Albumin 2.3 L, Globulin 3.1, Albumin/Globulin Ratio 0.7 L Radiography Diagnostic Testing: Radiology Impression Abdomen/Pelvis CT 09/27/22 16:54 IMPRESSION: (NOT LISTED IN ORDER OF SIGNIFICANCE) Double-J bilateral ureteral stents in place. Bilateral hydronephroureter. Other findings as above. Electronically Signed: Parviz Stevenson MD at 17:38 EST Reading Location ID and State: [facility] / [place] , Service support , Rhythm Strip Rhythm Strip: Sinus Rhythm Rate: 74 Ectopy: None Physical Exam Const alert and oriented x3 Constitutional Narrative: Upper middle-aged white male lying in bed, appears comfortable, family at be dside, nontoxic-appearing at this time HEENT head/scalp atraumatic and moist oral mucous membranes HEENT Narrative: Dentition is fair, Mallampati is 2, no thrush Resp normal respiratory effort, no retractions, no use of accessory muscles and clear to auscultation bilaterally Resp Narrative: Fusilli diminished but clear Auscultation: Negative for crackles, rhonchi or wheezes Cardio regular rate, regular rhythm, S1 normal heart sound, S2 normal heart sound, no murmurs, no rub, no gallops and no clicks GI GI Narrative: PAULA drain in place with serous fluid drainage, bandages soaked with serous fluid at this time as are sheets and gown, nursing is changing all of this at the time of my evaluation, Segovia in place with clear yellow urine, abdomen is nondistended with normal bowel sounds and no significant tenderness Extremity no clubbing, cyanosis or edema Extremity Narrative: 2+ pedal pulses Neuro oriented x3, moves all extremities and no focal motor deficits Speech: speech normal Psych Psych Narrative: Affect is flat Assessment & Plan Assessment/Plan (1) Intra-abdominal abscess: (2) KAYY (acute kidney injury): (3) Acute UTI: (4) Acute hypotension: (5) Acute dehydration: (6) History of bladder cancer: PLAN: Plan Acute complicated UTI -Catheter associated is patient has chronic indwelling Segovia -Segovia to be changed--> will need discharged with this -Continue IV antibiotics -Cultures are pending-->Blood and urine Hypotension -Blood pressures seem to be stabilizing and slowly improving -Patient is on anti-'s which are current and held/have hold parameters -May need to reevaluate home medications prior to discharge and consider carvedilol reduction depending on what his pressures do over the next 24 to 48 hours Anemia/thrombocytopenia -I suspect this is chronic however I have no previous laboratory data before yesterday. Patient is following up over in [place] with surgery and oncology -Continue to monitor with a.m. CBC Hyponatremia -Improving next-repeat BMP in a.m. KAYY -Baseline serum creatinine appears to be between 0.9 and 1.1 -Serum creatinine mission was 1.49 -Creatinine today is 1.02 -No further IV fluids at this time -Repeat BMP in the a.m. Lactic acidosis -Resolved Abdominal abscess -Is on fluconazole at baseline -We will continue while he is here -Repeat CT here shows no evidence of abscess and this was reviewed with the patient -APULA drain still in place and patient does have follow-up in the near future over in [place] Bladder cancer -Status post bladder resection and neobladder formation -Continue chronic Segovia and exchange -Follow-up with surgery as an outpatient -Patient has undergone 4 rounds of chemotherapy Hypertension -Blood pressures remain borderline -Lisinopril on hold -Hold parameters on carvedilol and carvedilol may need need to be adjusted prior to discharge 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 Roe following on 08/17/2022--> blood pres sure at that time was 107/76 -Did have stress test with no inducible ischemia -Lisinopril currently on hold secondary to soft blood pressures -May need to adjust carvedilol dose and down titrate prior to discharge patient was on 3.125 mg prior to 08/17/2022 visit with cardiology Depression -Continue home sertraline DVT prophylaxis -Enoxaparin CODE STATUS Full code Charges/Coding Visit Charges Inpatient E&M: 46379 Subs Hosp L2
[2022-09-28] MEDS: Ensure Plus High Protein 120 ML LIQUID PO (16:52)
[2022-09-28] MEDS: Carvedilol 25 MG Tablet PO (21:58)
[2022-09-29] VITALS (11 sets, daily range): BP systolic 95–116; BP diastolic 63–74; PULSE 85–93; RESP 16; TEMP 36.2–37.4; O2SAT 97–99
[2022-09-29] MEDS: Loperamide 2 MG Capsule PO (04:09)
[2022-09-29] MEDS: Sodium Chloride Irrig Solution 500 ML 60 ML IRRIGATION ×3 (05:41→22:19)
[2022-09-29 06:32] LABS: Absolute Neutrophil Count 3.5 X10^3/uL (2.0-7.7); Basophil# 0.01 X10^3/uL; Basophil% 0.2 % (0-1); Eosinophil# 0.09 X10^3/uL; Eosinophils% 1.6 % (0-5); Hemoglobin 8.9 g/dL (13.0-16.5); Lymphocyte % 26.4 % (19-41); Mean Corp Hgb Conc 31.8 g/dL (32-36); Mean Corpuscular Volume 97.6 fL (80-94); Mean Platelet Vol. 9.6 fl (6.2-12.0); Monocyte# 0.54 X10^3/uL; Monocyte% 9.5 % (0-10); NRBC Flagged by Analyzer 0 % (0-5); Neutrophil % 61.4 % (47-70); POSITIVE COUNT YES; Platelet Count 59 K/mm3 (150-450); RBC Distribution Width CV 16.8 % (11.6-14.6); RBC Distribution Width SD 59.7 fl (35.1-43.9); Red Blood Count 2.87 M/mm3 (4.6-6.2); White Blood Count 5.7 K/mm3 (4.4-11.0)
[2022-09-29 07:05] LABS: Anion Gap 5 (5-15); BUN 39 mg/dL (7-18); BUN/Creat Ratio 34.8 RATIO (10-20); Calcium,Total 8.5 mg/dL (8.5-10.1); Chloride 109 mmol/L (98-107); Creatinine, Serum 1.12 mg/dL (0.70-1.30); EST Glomerular Filtration Rate 70 mL/min (>60); Est Glom Filt Rate - Afr Amer 85 mL/min (>60); Estimated Creatinine Clearance 65.76 ml/min; Glucose 113 mg/dL (74-106); Sodium Level 134 mmol/L (136-145)
[2022-09-29] MEDS: Ensure Plus High Protein 120 ML LIQUID PO ×2 (10:12→13:47)
[2022-09-29] MEDS: Fluconazole 100 MG Tablet 200 MG PO (10:16)
[2022-09-29] MEDS: Carvedilol 25 MG Tablet PO ×2 (10:16→22:19)
[2022-09-29] MEDS: Magnesium Chloride 64 MG Delay Rel.Tablet PO ×2 (10:17→22:19)
[2022-09-29] MEDS: Sertraline 50 MG Tablet PO (10:17)
[2022-09-29] MEDS: Dronabinol 2.5 MG Capsule 5 MG PO (10:17)
[2022-09-29] MEDS: Enoxaparin 40 MG/0.4 ML Syringe SC (10:17)
[2022-09-29] MEDS: 0.9% Saline Lock 10 ML Syringe IV ×2 (13:52→22:18)
--- NOTE | 2022-09-29 18:03 | PN.HOSP_ITS ---
Subjective Subjective Feels better today. No issues overnight Objective Data Objective Data Vital Signs: Vital Signs Temp Pulse Resp BP Pulse Ox O2 Del Method 99.3 F H 87 16 95/63 99 Room Air 09/29/22 16:10 09/29/22 16:10 09/29/22 16:10 09/29/22 16:10 09/29/22 16:10 09/29/22 16:10 Oxygen Delivery Method Room Air Weight: 158 lb 15.253 oz Body Mass Index (BMI) 23.4 Intake & Output: Intake and Output for Last 24 Hours 09/28/22 09/29/22 09/30/22 03:59 03:59 03:59 Intake Total 3050 / 3050 580 / 580 50 / 50 Output Total 500 / 500 1500 / 1500 500 / 500 Balance 2550 / 2550 -920 / -920 -450 / -450 Medical Nutrition Assessment Dietitian: Malnutrition Criteria Met Start: 09/28/22 13:26 Freq: Status: Active Protocol: Document 09/28/22 13:26 AG (Rec: 09/28/22 13:26 [id number]) Nutrition Malnutrition Evidence of Malnutrition Exists Yes Malnutrition (severe): Chronic Evidenced By Suboptimal Energy Intake ( Severe),Weight Loss (Severe) Clinical Problem Chronic Disease or Condition Related Malnutrition Etiology severe, chronic malnutrition related to inadequate oral intake Signs/Symptoms as evidenced by unintentional wt loss of 21#/12% wt loss x 5 months, estimated PO intake meeting <75 % of estimated energy needs >3 weeks Status Active Problem Recommendation Dietitian Recommendations/Changes regular diet, will fortify foods when able; ensure plus high protein 120mL 4x/day w/ medpass, magic cup w/ dinner for additional calories/ protein if consumed. Lab / Micro Data Result Diagrams: 09/29/22 05:45 09/29/22 05:45 Labs: Laboratory Results - last 24 hr 09/29/22 05:45: WBC 5.7, RBC 2.87 L, Hgb 8.9 L, Hct 28.0 L, MCV 97.6 H, MCH 31.0, MCHC 31.8 L, RDW Std Deviation 59.7 H, RDW Coeff of Nirmal 16.8 H, Plt Count 59 L, MPV 9.6, Immature Gran % (Auto) 0.900, Neut % (Auto) 61.4, Lymph % (Auto) 26.4, [place] % (Auto) 9.5, Eos % (Auto) 1.6, Baso % (Auto) 0.2, Absolute Neuts (auto) 3.5, Absolute Lymphs (auto) 1.50, Nucleated RBC % 0 09/29/22 05:45: Sodium 134 L, Potassium 4.0, Chloride 109 H, Carbon Dioxide 20.0 L, Anion Gap 5, BUN 39 H, Creatinine 1.12, Estim Creat Clear Calc 65.76, Est GFR (MDRD) Af Amer 85, Est GFR (MDRD) Non-Af 70, BUN/Creatinine Ratio 34.8 H, Glucose 113 H, Calcium 8.5 Micro: Microbiology 09/27/22 14:42 Urine Catheter - Catheter Urine Culture - Final Presumptive C albicans Rhythm Strip Rhythm Strip: Sinus Rhythm Rate: 74 Ectopy: None Physical Exam Narrative General: Alert, Oriented x3, Cooperative, No apparent distress HEENT: Atraumatic, PERRLA, EOMI, Normocephalic Oral: Moist Mucosa Neck: Supple, No JVD Lungs: Diminished, Normal air movement, No rhonchi, No wheeze, No rales Cardiovascular: Regular rate, Regular Rhythm, Normal S1, Normal S2, No murmurs Abdomen: Soft, Non Tender, Non-Distended, No Hepato-splenomegaly, PAULA drain in place with serous fluid, Segovia is also in place Extremities: No edema, Capillary Refill Less than 3 Seconds Skin: No rashes, No breakdown Musculoskeletal: No Tenderness to Palpation of Joints or Extremities Neurological: Cranial nerves II-XII grossly intact, Motor Exam 5/5 strength throughout, Sensory exam intact to light touch and pain Psych/Mental Status: Normal Affect, Appropriate Assessment & Plan Assessment/Plan (1) Intra-abdominal abscess: (2) KAYY (acute kidney injury): (3) Acute UTI: (4) Acute hypotension: (5) Acute dehydration: (6) History of bladder cancer: PLAN: Plan 1. Acute complicated UTI with hypotension and syncope/KAYY ? He does have an indwelling Segovia secondary to bladder cancer postresection with neobladder formation ? We will continue with his antibiotics, cultures are pending ? Blood pressures are improved with IV fluids ? His KAYY has resolved we will continue to monitor 2. Bladder cancer status post bladder resection with neobladder formation ? He does have anemia and thrombocytopenia which appears to be chronic secondary to his cancer diagnosis however we do not have any previous lab work so we will continue to monitor ? We will exchange his Segovia and plan for outpatient follow-up with surgery as well as his oncologist 3. Abdominal abscess ? He is currently on fluconazole at baseline, will continue while he is here ? CT scan here does not show any evidence of the abscess and the PAULA drain is still in place and will have follow-up in [place] 4. 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 Echocardiogram in July at the outside facility demonstrates an EF of 40 to 45% with stage I diastolic dysfunction ? He did have a fairly significant increase in his Coreg from 3.125 mg to 25 mg. If he continues to have episodes of hypotension and lightheadedness tomorrow, will need to cut this back, will continue to hold his lisinopril 5. Depression ? Stable ? Continue with his home medications DVT: Lovenox Charges/Coding Visit Charges Inpatient E&M: 56872 Subs Hosp L2
[2022-09-30] VITALS (7 sets, daily range): BP systolic 96–117; BP diastolic 66–79; PULSE 75–97; RESP 16–17; TEMP 36.4–36.8; O2SAT 95–98
[2022-09-30] MEDS: Sodium Chloride Irrig Solution 500 ML 60 ML IRRIGATION ×2 (05:04→14:33)
[2022-09-30 05:32] LABS: Absolute Lymphocyte Count 1.41 X10^3/uL (0.83-4.51); Absolute Neutrophil Count 3.6 X10^3/uL (2.0-7.7); Basophil# 0.01 X10^3/uL; Basophil% 0.2 % (0-1); Eosinophil# 0.08 X10^3/uL; Eosinophils% 1.4 % (0-5); Hematocrit 26.4 % (40-54); Hemoglobin 8.7 g/dL (13.0-16.5); Lymphocyte # 1.41 X10^3/ul (0.83-4.51); Lymphocyte % 25.3 % (19-41); Mean Corpuscular Volume 97.1 fL (80-94); Mean Platelet Vol. 10.1 fl (6.2-12.0); Monocyte# 0.45 X10^3/uL; Monocyte% 8.1 % (0-10); NRBC Flagged by Analyzer 0 % (0-5); Neutrophil # 3.58 X10^3/uL (2.7-7.7); Neutrophil % 64.1 % (47-70); POSITIVE COUNT YES; Platelet Count 62 K/mm3 (150-450); RBC Distribution Width SD 60.1 fl (35.1-43.9); Red Blood Count 2.72 M/mm3 (4.6-6.2); White Blood Count 5.6 K/mm3 (4.4-11.0)
[2022-09-30 05:54] LABS: Anion Gap 7 (5-15); BUN 33 mg/dL (7-18); Calcium,Total 8.8 mg/dL (8.5-10.1); Chloride 110 mmol/L (98-107); Creatinine, Serum 1.03 mg/dL (0.70-1.30); EST Glomerular Filtration Rate 77 mL/min (>60); Est Glom Filt Rate - Afr Amer 93 mL/min (>60); Glucose 115 mg/dL (74-106); Potassium 3.7 mmol/L (3.5-5.1); Sodium Level 137 mmol/L (136-145)
[2022-09-30] MEDS: Magnesium Chloride 64 MG Delay Rel.Tablet PO (09:08)
[2022-09-30] MEDS: Fluconazole 100 MG Tablet 200 MG PO (09:08)
[2022-09-30] MEDS: Sertraline 50 MG Tablet PO (09:08)
[2022-09-30] MEDS: Enoxaparin 40 MG/0.4 ML Syringe SC (09:08)
[2022-09-30] MEDS: Ensure Plus High Protein 120 ML LIQUID PO ×2 (09:13→14:44)
[2022-09-30] MEDS: Dronabinol 2.5 MG Capsule 5 MG PO (09:13)
--- NOTE | 2022-09-30 09:24 | PN.HOSP_ITS ---
Subjective Subjective Doing well, feels almost back to his baseline per the he does seem weaker than normal and this is because he spent more time in the hospital in the last 2 months and he has at home Objective Data Objective Data Vital Signs: Vital Signs Temp Pulse Resp BP Pulse Ox O2 Del Method 97.6 F L 97 17 117/79 98 Room Air 09/30/22 08:22 09/30/22 08:22 09/30/22 08:22 09/30/22 08:22 09/30/22 08:22 09/30/22 08:30 Oxygen Delivery Method Room Air Weight: 158 lb 15.253 oz Body Mass Index (BMI) 23.4 Intake & Output: Intake and Output for Last 24 Hours 09/29/22 09/30/22 10/01/22 03:59 03:59 03:59 Intake Total 580 / 580 990 / 990 Output Total 1500 / 1500 1950 / 1950 400 / 400 Balance -920 / -920 -960 / -960 -400 / -400 Medical Nutrition Assessment Dietitian: Malnutrition Criteria Met Start: 09/28/22 13:26 Freq: Status: Active Protocol: Document 09/28/22 13:26 AG (Rec: 09/28/22 13:26 [id number]) Nutrition Malnutrition Evidence of Malnutrition Exists Yes Malnutrition (severe): Chronic Evidenced By Suboptimal Energy Intake ( Severe),Weight Loss (Severe) Clinical Problem Chronic Disease or Condition Related Malnutrition Etiology severe, chronic malnutrition related to inadequate oral intake Signs/Symptoms as evidenced by unintentional wt loss of 21#/12% wt loss x 5 months, estimated PO intake meeting <75 % of estimated energy needs >3 weeks Status Active Problem Recommendation Dietitian Recommendations/Changes regular diet, will fortify foods when able; ensure plus high protein 120mL 4x/day w/ medpass, magic cup w/ dinner for additional calories/ protein if consumed. Lab / Micro Data Result Diagrams: 09/30/22 04:24 09/30/22 04:24 Labs: Laboratory Results - last 24 hr 09/30/22 04:24: WBC 5.6, RBC 2.72 L, Hgb 8.7 L, Hct 26.4 L, MCV 97.1 H, MCH 32.0, MCHC 33.0, RDW Std Deviation 60.1 H, RDW Coeff of Nirmal 17.0 H, Plt Count 62 L, MPV 10.1, Immature Gran % (Auto) 0.900, Neut % (Auto) 64.1, Lymph % (Auto) 25.3, [place] % (Auto) 8.1, Eos % (Auto) 1.4, Baso % (Auto) 0.2, Absolute Neuts (auto) 3.6, Absolute Lymphs (auto) 1.41, Nucleated RBC % 0 09/30/22 04:24: Sodium 137, Potassium 3.7, Chloride 110 H, Carbon Dioxide 20.0 L , Anion Gap 7, BUN 33 H, Creatinine 1.03, Estim Creat Clear Calc 71.50, Est GFR (MDRD) Af Amer 93, Est GFR (MDRD) Non-Af 77, BUN/Creatinine Ratio 32.0 H, Glucose 115 H, Calcium 8.8 Micro: Microbiology 09/27/22 Unknown Blood Culture (Wb) - Anticubital Right Blood Culture - Preliminary No growth in 48 hours. 09/27/22 14:42 Urine Catheter - Catheter Urine Culture - Final Presumptive C albicans Rhythm Strip Rhythm Strip: Sinus Rhythm Rate: 74 Ectopy: None Physical Exam Narrative General: Alert, Oriented x3, Cooperative, No apparent distress HEENT: Atraumatic, PERRLA, EOMI, Normocephalic Oral: Moist Mucosa Neck: Supple, No JVD Lungs: Diminished, Normal air movement, No rhonchi, No wheeze, No rales Cardiovascular: Regular rate, Regular Rhythm, Normal S1, Normal S2, No murmurs Abdomen: Soft, Non Tender, Non-Distended, No Hepato-splenomegaly, PAULA drain in place with serous fluid, [place] is also in place Extremities: No edema, Capillary Refill Less than 3 Seconds Skin: No rashes, No breakdown Musculoskeletal: No Tenderness to Palpation of Joints or Extremities Neurological: Cranial nerves II-XII grossly intact, Motor Exam 5/5 strength throughout, Sensory exam intact to light touch and pain Psych/Mental Status: Normal Affect, Appropriate Assessment & Plan Assessment/Plan (1) Intra-abdominal abscess: (2) KAYY (acute kidney injury): (3) Acute UTI: (4) Acute hypotension: (5) Acute dehydration: (6) History of bladder cancer: PLAN: Plan 1. Acute complicated UTI with hypotension and syncope/KAYY ? He does have an indwelling [place] secondary to bladder cancer postresection with neobladder formation ?Likely discontinue antibiotics on discharge as his urine cultures coming back as Stella albicans and he is already on Diflucan for his fungal abscess ? Blood pressures are improved with IV fluids, will have him evaluated by PT/OT and also monitor his blood pressure and the symptoms while he is up and ambulating ? His KAYY has resolved we will continue to monitor 2. Bladder cancer status post bladder resection with neobladder formation ? He does have anemia and thrombocytopenia which appears to be chronic secondary to his cancer diagnosis however we do not have any previous lab work so we will continue to monitor ? We will exchange his Seg[place]ia and plan for outpatient follow-up with surgery as well as his oncologist 3. Abdominal abscess ? He is currently on fluconazole at baseline, will continue while he is here ? CT scan here does not show any evidence of the abscess and the PAULA drain is still in place and will have follow-up in [place] 4. 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 Echocardiogram in July at the outside facility demonstrates an EF of 40 to 45% with stage I diastolic dysfunction ? He did have a fairly significant increase in his Coreg from 3.125 mg to 25 mg. If he continues to have episodes of hypotension and lightheadedness tomorrow, will need to cut this back, will continue to hold his lisinopril 5. Depression ? Stable ? Continue with his home medications DVT: Lovenox Charges/Coding Visit Charges Inpatient E&M: 07718 Subs Hosp L2
[2022-09-30] MEDS: Carvedilol 25 MG Tablet PO (10:17)
[2022-09-30] MEDS: 0.9% Saline Lock 10 ML Syringe IV (10:17)
--- NOTE | 2022-09-30 16:21 | CASEMGMT ---
Addendum entered by Steffanie Lucas 09/30/22 16:36: Pt and both made aware he is discharging home today. states she will be coming to pick pt up to take him home. Addendum entered by Steffanie Lucas 09/30/22 16:35: [facility] referral sent to [facility] via [facility] at this time along w/discharge instructions. Original Note: JEFF ALVAREZ NOTE: PT/OT notes reviewed. Pt ambulated 250 ft today w/[facility] and HHC recommended. Pt is already active w/HHC. JEFF ALVAREZ to room to talk w/pt. Pt states he is not sure what HHC agency he has and asked JEFF ALVAREZ to call his . TC to . She states pt is active w/[facility] for SN and therapy. JEFF ALVAREZ had been informed that pt wished to switch to different HHC. states pt has been in the hospital so much since getting set up with [facility] that they have not had much of a chance to work w/pt. She states she was under the understanding that pt may need to go to a SNF @ discharge. She was made aware pt worked w/therapy today and he is ambulating well and HHC is recommended. She voices understanding. Pt also stated he does not feel he needs to go anywhere and wishes to return home. Both pt and state wish for pt to resume HHC w/[facility] and decline wanting list of other HHC choices. Pt denies having any further discharge planning needs/concerns. Call to [facility] and spoke w/Salud. She confirmed pt has SN and PT/OT. [facility] order placed. JEFF ALVAREZ also spoke w/the nurse and she was made aware pt is discharging home this PM. Oly MARQUEZ RN, CM
--- NOTE | 2022-09-30 16:27 | DCINST_ITS ---
Discharge Instructions Diet Discharge Diet: No restrictions Activity Discharge Activity: Return to Normal Activity Dressing / Incision Call your doctor if you observe: Fever of 101 or Higher, Shortness of breath, Dizziness, Fainting spells, Swelling in the ankles, Chest pain and Increased palpitations (irregular heartbeat) Follow Up Care Test Results: Test results from this visit will be discussed in further detail at your follow- up appointment, if applicable. Discharge Plan Admission Admit Date/Time: 09/27/22 17:53 Attending Provider: Jose Bee Primary Care Provider: Jamey Magdaleno NP Consulting Providers: Hugo Rai ; Elicia Silva Instructions Additional Instructions / Restrictions: [place] ballon filled with 10cc of air. Discharge Orders/Prescriptions Prescriptions: Continued acetaminophen 500 mg capsule 1,000 mg PO Q8H PRN (Reason: pain) lisinopril 2.5 mg tablet 2.5 mg PO DAILY Qty: 30 6RF loperamide 2 mg Capsule 2 mg PO PRN PRN (Reason: Diarrhea) dronabinol 5 mg capsule 5 mg PO DAILY Label Comments: take 1 capsule by mouth three times a day before meals fluconazole 200 mg tablet 200 mg PO DAILY Label Comments: take 1 tablet by mouth once daily for 5 days docusate sodium 100 mg capsule 100 mg PO DAILY Label Comments: Take 1 capsule by mouth twice daily. cefdinir 300 mg capsule 300 mg PO DAILY Label Comments: take 1 capsule by mouth twice a day for 5 days sertraline 50 mg tablet 50 mg PO DAILY Label Comments: TAKE 1 TABLET BY MOUTH EVERY DAY sodium chloride 0.9 % solution 60 ml irrigation TID Label Comments: Irrigate 60 mL as instructed three times daily. magnesium chloride 71.5 mg Tablet,Delayed Release (Dr/Ec) 71.5 mg PO BID Changed carvedilol 25 mg tablet 12.5 mg PO BID Qty: 1 0RF Label Comments: Take 1 tablet by mouth twice daily with meals. Referrals / Follow Up: Jamey Magdaleno NP, [employer] [Primary Care Provider] - Within 1 Week Disposition Disposition (needs filled in before D/C Order can be placed): Home Health Service
--- NOTE | 2022-09-30 16:38 | PCM.DC.SUM ---
Providers Date of Admission: 09/27/22 Primary Care Physician: Jamey Magdaleno, [employer] Reason For Visit: SYNCOPE, KAYY, UTI Diagnosis Discharge Diagnosis (1) Intra-abdominal abscess: Status: Acute Code(s): K65.1 - Peritoneal abscess (2) KAYY (acute kidney injury): Status: Acute Code(s): N17.9 - Acute kidney failure, unspecified (3) Acute UTI: Status: Acute Code(s): N39.0 - Urinary tract infection, site not specified (4) Acute hypotension: Status: Acute Code(s): I95.9 - Hypotension, unspecified (5) Acute dehydration: Status: Acute Code(s): E86.0 - Dehydration (6) History of bladder cancer: Status: Acute Code(s): Z85.51 - Personal history of malignant neoplasm of bladder Plan 1. Acute complicated UTI with hypotension and syncope/KAYY ? He does have an indwelling [place] secondary to bladder cancer postresection with neobladder formation ?Likely discontinue antibiotics on discharge as his urine cultures coming back as Stella albicans and he is already on Diflucan for his fungal abscess ? Blood pressures are improved with IV fluids, will have him evaluated by PT/OT and also monitor his blood pressure and the symptoms while he is up and ambulating ? His KAYY has resolved we will continue to monitor 2. Bladder cancer status post bladder resection with neobladder formation ? He does have anemia and thrombocytopenia which appears to be chronic secondary to his cancer diagnosis however we do not have any previous lab work so we will continue to monitor ? We will exchange his Segovia and plan for outpatient follow-up with surgery as well as his oncologist 3. Abdominal abscess ? He is currently on fluconazole at baseline, will continue while he is here ? CT scan here does not show any evidence of the abscess and the PAULA drain is still in place and will have follow-up in [place] 4. 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 Echocardiogram in July at the outside facility demonstrates an EF of 40 to 45% with stage I diastolic dysfunction ? He did have a fairly significant increase in his Coreg from 3.125 mg to 25 mg. If he continues to have episodes of hypotension and lightheadedness tomorrow, will need to cut this back, will continue to hold his lisinopril 5. Depression ? Stable ? Continue with his home medications DVT: Lovenox Medications at Discharge Home Medications acetaminophen 500 mg capsule 1,000 mg PO Q8H PRN pain 07/30/22 lisinopril 2.5 mg tablet 2.5 mg PO DAILY #30 tabs 08/05/22 cefdinir 300 mg capsule 300 mg PO DAILY 09/27/22 docusate sodium 100 mg capsule 100 mg PO DAILY 09/27/22 dronabinol 5 mg capsule 5 mg PO DAILY 09/27/22 fluconazole 200 mg tablet 200 mg PO DAILY 09/27/22 loperamide 2 mg capsule 2 mg PO PRN PRN Diarrhea 09/27/22 magnesium chloride 71.5 mg (magnesium chloride) tablet,delayed release 71.5 mg PO BID SUPPLEMENT 09/27/22 sertraline 50 mg tablet 50 mg PO DAILY ANXIETY 09/27/22 sodium chloride 0.9 % irrigation solution 60 ml irrigation TID IRRIGATION 09/27/22 carvedilol 25 mg tablet 12.5 mg PO BID HEART #1 TAB 09/30/22 Hospital Course Operations None Procedures None Summary of Care Provided Minutes Spent on Discharge: 40 Hospital Course: Per HPI: ROBERT ROSENBERG, is a 67 M who presents recently discharged from [facility] and was feeling lightheaded and dizzy since this past .? Not eating and drinking much and also having diarrhea.? Patient was very weak and then passed out and was noted to have some jerking motions.? Patient was noted to be hypotensive.? Patient did receive IV fluids and blood pressure has subsequent improved as well as mental status.? Patient during his hospitalization most recently at [facility] this month was for intra-abdominal abscess.? Patient had a drain placed and was put on oral antibiotics.? Repeat CAT scan here showed no evidence of an abscess.? Patient does have a drain still in place.? Patient did have a suprapubic catheter 1 point but that has since been removed.? Patient does have some oozing that can be occasionally expressed from that area but that has slowly improved over time.? In the emergency room here, patient did receive IV fluids.? Patient was noted to have Urinary tract infection on urinalysis and did receive ceftriaxone.? Patient's catheter was changed in the emergency room. Hospital Course: 1. Acute complicated UTI with hypotension and syncope/KAYY?67-year-old male who was recently discharged from [facility] and was feeling lightheaded and dizzy presented to the hospital. He was found to have a UTI which ultimately showed Stella albicans as he is already on Diflucan for fungal abscess, his antibiotics were discontinued on discharge. He was started on IV fluids and his KAYY has completely resolved. Of note his lightheadedness and dizziness is better with the IV fluids however he is still hypotensive at times and so we will decrease his Coreg from 25 mg twice daily to 12-1/2 mg p.o. twice daily. He was evaluated by PT and OT today who did not think that he required [facility] facility and he already has home health care in place which will just be resumed on discharge, of note he did ambulate with him today and did not get significantly dizzy or lightheaded. I discussed with him the plan for discharge today and he expressed understanding of the risk and benefits of going home and would like to go home today. I also discussed with him that given his bladder surgery and his cancer that he needs to follow-up with his primary care doctor as well as oncologist and urologist given the abscess but still has a PAULA in in his neobladder. 2. Bladder cancer status post bladder resection with neobladder formation, abdominal abscess, hypertension, chronic systolic CHF secondary to chemotherapy, depressions are all chronic medical conditions which complicate his care. His home medications were continued where appropriate Medical Records Data Medical Nutrition Assessment Dietitian: Malnutrition Criteria Met Start: 09/28/22 13:26 Freq: Status: Active Protocol: Document 09/28/22 13:26 (Rec: 09/28/22 13:26 AG [id number]) Nutrition Malnutrition Evidence of Malnutrition Exists Yes Malnutrition (severe): Chronic Evidenced By Suboptimal Energy Intake ( Severe),Weight Loss (Severe) Clinical Problem Chronic Disease or Condition Related Malnutrition Etiology severe, chronic malnutrition related to inadequate oral intake Signs/Symptoms as evidenced by unintentional wt loss of 21#/12% wt loss x 5 months, estimated PO intake meeting <75 % of estimated energy needs >3 weeks Status Active Problem Recommendation Dietitian Recommendations/Changes regular diet, will fortify foods when able; ensure plus high protein 120mL 4x/day w/ medpass, magic cup w/ dinner for additional calories/ protein if consumed. Weight / BMI Weight Weight: 158 lb 15.253 oz Body Mass Index (BMI) 23.4 ABG / Lab / Microbiology Data Result Diagrams: 09/30/22 04:24 09/30/22 04:24 Laboratory: Laboratory Results - last 24 hr 09/30/22 04:24: WBC 5.6, RBC 2.72 L, Hgb 8.7 L, Hct 26.4 L, MCV 97.1 H, MCH 32.0, MCHC 33.0, RDW Std Deviation 60.1 H, RDW Coeff of Nirmal 17.0 H, Plt Count 62 L, MPV 10.1, Immature Gran % (Auto) 0.900, Neut % (Auto) 64.1, Lymph % (Auto) 25.3, [place] % (Auto) 8.1, Eos % (Auto) 1.4, Baso % (Auto) 0.2, Absolute Neuts (auto) 3.6, Absolute Lymphs (auto) 1.41, Nucleated RBC % 0 09/30/22 04:24: Sodium 137, Potassium 3.7, Chloride 110 H, Carbon Dioxide 20.0 L, Anion Gap 7, BUN 33 H, Creatinine 1.03, Estim Creat Clear Calc 71.50, Est GFR (MDRD) Af Amer 93, Est GFR (MDRD) Non-Af 77, BUN/Creatinine Ratio 32.0 H, Glucose 115 H, Calcium 8.8 Microbiology: Microbiology 09/27/22 Unknown Blood Culture (Wb) - Anticubital Right Blood Culture - Preliminary No growth in 48 hours. 09/27/22 14:42 Urine Catheter - Catheter Urine Culture - Final Presumptive C albicans D/C Instructions Discharge Diet: No restrictions Call your doctor if you observe: Fever of 101 or Higher, Shortness of breath, Dizziness, Fainting spells, Swelling in the ankles, Chest pain and Increased palpitations (irregular heartbeat) Meaningful Use Info Meaningful Use Diagnoses (Choose all that apply): None applicable Discharge Plan Admission Admit Date/Time: 09/27/22 17:53 Attending Provider: Jose Bee Primary Care Provider: Jamey Magdaleno [employer] Consulting Providers: Hugo Rai ; Elicia Silva Instructions Additional Instructions / Restrictions: [place] ballon filled with 10cc of air. Discharge Orders/Prescriptions Prescriptions: Continued acetaminophen 500 mg capsule 1,000 mg PO Q8H PRN (Reason: pain) lisinopril 2.5 mg tablet 2.5 mg PO DAILY Qty: 30 6RF loperamide 2 mg Capsule 2 mg PO PRN PRN (Reason: Diarrhea) dronabinol 5 mg capsule 5 mg PO DAILY Label Comments: take 1 capsule by mouth three times a day before meals fluconazole 200 mg tablet 200 mg PO DAILY Label Comments: take 1 tablet by mouth once daily for 5 days docusate sodium 100 mg capsule 100 mg PO DAILY Label Comments: Take 1 capsule by mouth twice daily. cefdinir 300 mg capsule 300 mg PO DAILY Label Comments: take 1 capsule by mouth twice a day for 5 days sertraline 50 mg tablet 50 mg PO DAILY Label Comments: TAKE 1 TABLET BY MOUTH EVERY DAY sodium chloride 0.9 % solution 60 ml irrigation TID Label Comments: Irrigate 60 mL as instructed three times daily. magnesium chloride 71.5 mg Tablet,Delayed Release (Dr/Ec) 71.5 mg PO BID Changed carvedilol 25 mg tablet 12.5 mg PO BID Qty: 1 0RF Label Comments: Take 1 tablet by mouth twice daily with meals. Referrals / Follow Up: Jamey Magdaleno NP, [employer] [Primary Care Provider] - Within 1 Week Disposition Disposition (needs filled in before D/C Order can be placed): Home Health Service Charges/Coding Visit Charges Inpatient E&M: 02770 Disch Hosp
== END 2022-09-30 17:52 | disposition home health service (06) | DRG 698 ==
LOC: ED 17:04 → PCU 18:30
PROVIDERS: Internal Medicine; Emergency Provider Emergency Medicine; PCP Nurse Practitioner Family; Visit Provider Family Medicine
DX: T83.511A Infection and inflammatory reaction due to indwelling urethral catheter, initial encounter (principal); K65.1 Peritoneal abscess; E43 Unspecified severe protein-calorie malnutrition; I42.7 Cardiomyopathy due to drug and external agent; E87.1 Hypo-osmolality and hyponatremia; L02.211 Cutaneous abscess of abdominal wall; B37.49 Other urogenital candidiasis; N17.9 Acute kidney failure, unspecified; I50.22 Chronic systolic (congestive) heart failure; I11.0 Hypertensive heart disease with heart failure; C67.8 Malignant neoplasm of overlapping sites of bladder; I95.9 Hypotension, unspecified; E86.0 Dehydration; N39.0 Urinary tract infection, site not specified; F32.A Depression, unspecified; R55 Syncope and collapse; Z79.899 Other long term (current) drug therapy; Y73.8 Miscellaneous gastroenterology and urology devices associated with adverse incidents, not elsewhere classified; T45.1X5A Adverse effect of antineoplastic and immunosuppressive drugs, initial encounter
CPT/HCPCS: 36415; 71045; 74177; 80048; 80053; 81001; 83605; 84484; 85025; 85610; 85730; 87040; 87086; 87088; 93005; 97162; 97166; 97802; 97803; 99285; J7030; Q9967; A4216